=== PATIENT | female | born 1965 | race African-American/Black ===

== ENCOUNTER 2020-03-20 15:02 | Emergency (ER) | payer OTHER ==
[~2020-03-20] VITALS: Ht 165.1 cm; Wt 104.3 kg
[2020-03-20 15:02] VITALS: BP 210/124
--- NOTE | 2020-03-20 15:02 | NUR ---
ED Nurse Note: Pt arrived with RA 34 from home due dizziness and weakness. pt reports she has high BP 220/124 at arrival pt report being amlodipine and benazapril. pt is aox4, no other sypmtoms at this time.
--- NOTE | 2020-03-20 15:12 | Emergency Room Report ---
History of Present Illness General Chief Complaint: Generalized Weakness Source: Patient, EMS Present Illness HPI Patient is a 54-year-old female past medical history of hypertension, fibromyalgia, neuropathy, obesity, and arthritis who presents to the ER by EMS for generalized weakness. Patient complains of generalized weakness and dizziness since yesterday. She states that she feels like the room is spinning. She states that she has no headache or blurry vision. She denies any chest pain or shortness of breath. She denies any abdominal pain, nausea or vomiting. She denies any focal weakness. She denies any falls. Allergies: Coded Allergies: PENICILLINS (Verified Allergy, Unknown, 03/20/20) COVID-19 Screening Contact w/high risk pt: No Experienced COVID-19 symptoms?: No COVID-19 Testing performed CUTTER APPRENTICE HAND: No Patient History Reviewed Nursing Documentation: PMH: Agreed; PSxH: Agreed Nursing Documentation-PMH Hx Cardiac Problems: Yes Hx Hypertension: Yes Hx Asthma: Yes Hx Diabetes: Yes Review of Systems All Other Systems: negative except mentioned in HPI Physical Exam Vital Signs Date Time Temp Pulse Resp B/P (MAP) Pulse Ox O2 Delivery O2 Flow Rate FiO2 03/20/20 14:52 99.0 76 16 210/124 (152) 99 Room Air Sp02 EP Interpretation: reviewed, normal General Appearance: no apparent distress, alert, GCS 15, non-toxic Head: normocephalic, atraumatic Eyes: bilateral eye normal inspection, bilateral eye PERRL ENT: hearing grossly normal, normal pharynx, no angioedema, normal voice Neck: full range of motion, supple/symm/no masses Respiratory: chest non-tender, lungs clear, normal breath sounds, speaking full sentences Cardiovascular #1: regular rate, rhythm Gastrointestinal: normal bowel sounds, non tender, soft, non-distended, no guarding, no rebound, overweight Rectal: deferred Musculoskeletal: back normal, moves extm spontaneously Neurologic: motor strength/tone normal, receiving supervisor III-XII nml as tested, oriented x3 , sensory intact Psychiatric: no suicidal/homicidal ideation Reflexes: 1+ knee (R), 1+ knee (L) Skin: no rash Lymphatic: no adenopathy Medical Decision Making Diagnostic Impression: Primary Impression: Hypertension Additional Impressions: UTI (urinary tract infection) Vertigo ER Course Patient presented vertiginous and with elevated blood pressure. Patient given 10 mg of IV hydralazine and blood pressure is now normal. Patient also given 50 mg of oral meclizine. On reevaluation she is ambulating without difficulty. She states that her vertigo has improved. Patient's MRI of the lumbar spine demonstrates L4-L5 anterior listhesis. Patient given a copy of her MRI results. Patient also found to have UTI. Patient given Macrobid 100 mg p.o. Patient states that she feels much improved. I offered the patient admission and told her that she would wait going to [facility]. 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 I have advised her to come back at any time if she changes her mind or if her symptoms return. Patient has no focal deficits and normal reflexes. After discussing risks and benefits of further diagnostics , treatment plans, as well as indications for and risks of admission, the patient is agreeable to being discharged home. I have explained that their evaluation and treatment in the emergency department today is an important step towards them achieving better health but that their evaluation today is not intended to replace further evaluation and treatment by a physician in their local clinic. I have explained that while the current findings suggest no immediate life threatening emergency they will require further evaluation and treatment by a physician of their choice in their area. They understand that it will be necessary for them to review the final reports of their ED visit with their clinic physician. We have reviewed indications for return to the Emergency Department. I have explained that additional time may need to pass and/or additional testing as an outpatient may be necessary before a definitive diagnosis can be made. They tell me they are willing to follow up as instructed within the timeframe I recommend. They appear to understand what we discussed. Additionally they understand that if they are unable to be seen by an outpatient physician they are welcome, and in fact should, return to the Emergency Department for a repeat evaluation. The patient is stable at time of discharge. Laboratory Tests Test 03/20/20 15:00 03/20/20 16:16 White Blood Count 6.4 K/UL (4.8-10.8) Red Blood Count 4.26 M/UL (4.20-5.40) Hemoglobin 12.2 G/DL (12.0-16.0) Hematocrit 38.9 % (37.0-47.0) Mean Corpuscular Volume 91 FL (80-99) Mean Corpuscular Hemoglobin 28.7 PG (27.0-31.0) Mean Corpuscular Hemoglobin Concent 31.5 G/DL (32.0-36.0) L Red Cell Distribution Width 13.6 % (11.6-14.8) Platelet Count 339 K/UL (150-450) Mean Platelet Volume 6.6 FL (6.5-10.1) Neutrophils (%) (Auto) 52.8 % (45.0-75.0) Lymphocytes (%) (Auto) 38.0 % (20.0-45.0) Monocytes (%) (Auto) 5.4 % (1.0-10.0) Eosinophils (%) (Auto) 2.1 % (0.0-3.0) Basophils (%) (Auto) 1.7 % (0.0-2.0) Prothrombin Time 11.5 SEC (9.30-11.50) Prothrombin Time INR 1.0 (0.9-1.1) Activated Partial Thromboplast Time 32 SEC (23-33) Sodium Level 143 MMOL/L (136-145) Potassium Level 3.8 MMOL/L (3.5-5.1) Chloride Level 108 MMOL/L (98-107) H Carbon Dioxide Level 27 MMOL/L (21-32) Anion Gap 9 mmol/L (5-15) Blood Urea Nitrogen 16 mg/dL (7-18) Creatinine 0.8 MG/DL (0.55-1.30) Estimated Glomerular Filtration Rate > 60 mL/min (>60) Glucose Level 93 MG/DL (74-106) Calcium Level 9.1 MG/DL (8.5-10.1) Magnesium Level 2.1 MG/DL (1.8-2.4) Total Bilirubin 0.4 MG/DL (0.2-1.0) Aspartate Amino Transferase (AST) 20 U/L (15-37) Alanine Aminotransferase (ALT) 22 U/L (12-78) Alkaline Phosphatase 68 U/L (46-116) Total Creatine Kinase 100 U/L (26-308) Troponin I 0.000 ng/mL (0.000-0.056) Total Protein 7.8 G/DL (6.4-8.2) Albumin 3.9 G/DL (3.4-5.0) Globulin 3.9 g/dL Albumin/Globulin Ratio 1.0 (1.0-2.7) Urine Color Yellow Urine Appearance Slightly cloudy Urine pH 6 (4.5-8.0) Urine Specific [place] 1.025 (1.005-1.035) Urine Protein Negative (NEGATIVE) Urine Glucose (UA) Negative (NEGATIVE) Urine Ketones Negative (NEGATIVE) Urine Blood Negative (NEGATIVE) Urine Nitrite Negative (NEGATIVE) Urine Bilirubin Negative (NEGATIVE) Urine Urobilinogen Normal MG/DL (0.0-1.0) Urine Leukocyte Esterase 3+ (NEGATIVE) H Urine RBC 2-4 /HPF (0 - 2) H Urine WBC 10-15 /HPF (0 - 2) H Urine Squamous Epithelial Cells Few /LPF (NONE/OCC) Urine Bacteria Few /HPF (NONE) Urine Opiates Screen Negative (NEGATIVE) Urine Barbiturates Screen Negative (NEGATIVE) Phencyclidine (PCP) Screen Negative (NEGATIVE) Urine Amphetamines Screen Negative (NEGATIVE) Urine Benzodiazepines Screen Negative (NEGATIVE) Urine Cocaine Screen Negative (NEGATIVE) Urine Marijuana (THC) Screen Negative (NEGATIVE) Microbiology Date/Time Source Procedure Growth Status 03/20/20 16:20 Nasopharynx SARS-CoV-2 RdRp Gene Assay - Final Complete EKG Diagnostic Results EKG Time: 15:16 EP Interpretation: Sandrita Willis MD Rate: normal Rhythm: NSR ST Segments: no acute changes Other Impression QT prolongation ASA given to the pt in ED: No Rhythm Strip Diag. Results Rhythm Strip Time: 15:14 EP Interpretation: yes - Sandrita Willis MD Rate: 67 bpm Rhythm: NSR, no PVC's, no ectopy Chest X-Ray Diagnostic Results Chest X-Ray Diagnostic Results : Chest X-Ray Ordered: Yes # of Views/Limited/Complete: 1 View Indication: Other - Weakness EP Interpretation: Yes - Sandrita Willis MD Interpretation: no consolidation, no effusion, no pneumothorax, other - Cardiomegaly Impression: No acute disease Electronically Signed by: Sandrita Willis MD Last Vital Signs Date Time Temp Pulse Resp B/P (MAP) Pulse Ox O2 Delivery O2 Flow Rate FiO2 03/20/20 15:11 210/124 03/20/20 14:52 99.0 76 16 99 Room Air Disposition: HOME, SELF-CARE Condition: Improved Scripts Nitrofurantoin Monohyd/M-Cryst* (MACROBID 100 MG*) 100 Mg Capsule 100 MG ORAL EVERY 12 HOURS for 7 Days, CAP Prov: Sandrita Willis M.D. 03/20/20 Meclizine Hcl* (MECLIZINE*) 25 Mg Tablet 25 MG ORAL THREE TIMES A DAY, #20 TAB Prov: Sandrita Willis M.D. 03/20/20 Additional Instructions: The patient was provided with discharge instructions, notified to follow-up with a primary care doctor and or specialist in the next 24-48 hours, and to return to the ED if they have worsening of their symptoms. Please note that this report is being documented using [employer] technology. This can lead to erroneous entry secondary to incorrect interpretation by the dictating instrument. Sandrita Willis M.D. Mar 20, 2020 15:12
[2020-03-20] MEDS ORDERED: Meclizine 25mg tab ORAL PRN (15:15)
--- NOTE | 2020-03-20 15:27 | NUR ---
ED Nurse Note: Pt taken to CT on nisa
--- NOTE | 2020-03-20 15:34 | NUR ---
ED Nurse Note: pt returned from CT
[2020-03-20 15:51] LABS: BASOPHILS % (AUTO) 1.7 % (0.0-2.0); EOSINOPHILS % (AUTO) 2.1 % (0.0-3.0); HEMATOCRIT 38.9 % (37.0-47.0); HEMOGLOBIN 12.2 G/DL (12.0-16.0); MEAN CORPUSCULAR VOLUME 91 FL (80-99); MONOCYTES % (AUTO) 5.4 % (1.0-10.0); NEUTROPHILS % (AUTO) 52.8 % (45.0-75.0); PLATELET COUNT 339 K/UL (150-450); RED BLOOD COUNT 4.26 M/UL (4.20-5.40); RED CELL DISTRIBUTION WIDTH 13.6 % (11.6-14.8); WHITE BLOOD COUNT 6.4 K/UL (4.8-10.8)
--- NOTE | 2020-03-20 16:02 | NUR ---
ED Nurse Note: lights dimmed for pt comfort.
[2020-03-20 16:11] LABS: ANION GAP 9 mmol/L (5-15); BLOOD UREA NITROGEN 16 mg/dL (7-18); CALCIUM 9.1 MG/DL (8.5-10.1); CARBON DIOXIDE 27 MMOL/L (21-32); CHLORIDE 108 MMOL/L (98-107); CREATININE 0.8 MG/DL (0.55-1.30); POTASSIUM 3.8 MMOL/L (3.5-5.1); SODIUM 143 MMOL/L (136-145)
[2020-03-20 16:16] LABS: ALANINE AMINOTRANSFERASE 22 U/L (12-78); ALBUMIN 3.9 G/DL (3.4-5.0); ALKALINE PHOSPHATASE 68 U/L (46-116); ASPARTATE AMINO TRANSFERASE 20 U/L (15-37); BILIRUBIN,TOTAL 0.4 MG/DL (0.2-1.0); CREATINE KINASE 100 U/L (26-308)
--- NOTE | 2020-03-20 16:20 | Diagnostic Imaging Report ---
Indications: Hypertension, vertigo, neuropathy Technique: Spiral acquisitions obtained through the brain. Angled axial and coronal 5 x 5 mm slices were reconstructed. Total dose length product 993 mGycm. CTDI vol(s) 50 mGy. Dose reduction achieved using automated exposure control Comparison: None. Findings: No acute intracranial hemorrhage or edema. No mass effect nor midline shift. Normal loyd-white differentiation. Normal size ventricles and extra-axial CSF spaces. Mastoids are clear. The sinuses are clear. The orbits are unremarkable. The calvarium is intact. Impression: Negative The CT scanner at [facility] is accredited by the [employer] and the scans are performed using protocols designed to limit radiation exposure to as low as reasonably achievable to attain images of sufficient resolution adequate for diagnostic evaluation.
--- NOTE | 2020-03-20 16:25 | NUR ---
ED Nurse Note: Pt ambulated to restroom with assitance. pt provided urine.
--- NOTE | 2020-03-20 16:45 | NUR ---
ED Nurse Note: Pt left for MRI
--- NOTE | 2020-03-20 17:24 | NUR ---
ED Nurse Note: PT RETURNED FROM MRI ON ARA
[2020-03-20 17:34] LABS: APPEARANCE,URINE SLIGHTLY CLOUDY; BILIRUBIN, URINE NEGATIVE (NEGATIVE); GLUCOSE, URINE (UA) NEGATIVE (NEGATIVE); KETONES,URINE NEGATIVE (NEGATIVE); LEUKOCYTE ESTERASE ,URINE 3+ (NEGATIVE); NITRITE,URINE NEGATIVE (NEGATIVE); PH,URINE 6 (4.5-8.0); PROTEIN,URINE NEGATIVE (NEGATIVE); UROBILINOGEN,URINE NORMAL MG/DL (0.0-1.0)
[2020-03-20 17:38] LABS: COLOR,URINE YELLOW
--- NOTE | 2020-03-20 17:42 | Diagnostic Imaging Report ---
Indication: Chest pain Technique: One view of the chest Comparison: none Findings: Heart is enlarged. Lungs and pleural spaces are clear Impression: Cardiomegaly. No acute process
--- NOTE | 2020-03-20 17:43 | Diagnostic Imaging Report ---
EXAM: MR Lumbar Spine Without Intravenous Contrast CLINICAL HISTORY: PAIN TECHNIQUE: Magnetic resonance images of the lumbar spine without intravenous contrast in multiple planes. COMPARISON: No previous studies. FINDINGS: Vertebrae: There is grade 1 anterolisthesis of L4 upon L5 vertebral body. Mild degenerative disc disease of the remaining levels the lumbar spine. Lower thoracic vertebral bodies and the sacrum are unremarkable. Evaluation of sagittal STIR weighted sequences reveals minimal signal abnormality involving the right pedicle of the L5 vertebral body suggestive of mild stress type injury without discrete fracture. Mild degenerative disc disease at the remaining levels of the lumbar spine. Spinal cord: Conus medullaris is unremarkable Conus medullaris is unremarkable. Soft tissues: Paraspinal soft tissues are unremarkable. DISCS/SPINAL CANAL/NEURAL FORAMINA: L1-L2: No significant focal abnormality. No stenosis. L2-L3: No significant focal abnormality. No stenosis. L3-L4: Moderate degenerative disc disease at the L3-4 and L4-5 levels. Mild to moderate degenerative disc disease L3-4. Mild posterior facet hypertrophy. No stenosis. L4-L5: Moderate degenerative disc disease L4-5. Transaxial images revealed the dominant finding to be at the L4-5 level where there is a broad-based protrusion with impression upon the anterior thecal sac and mild acquired spinal stenosis and moderate posterior facet hypertrophy. L5-S1: No significant focal abnormalities. No stenosis. IMPRESSION: 1. Anterolisthesis of L4 upon L5 vertebral body appeared 2. Minimal bruising and edema involving the right pedicle of L5 vertebral body compatible with mild stress injury. 3. No spondylolysis. 4. Anterolisthesis of L4 upon L5 vertebral body. 5. Degenerative disc disease most notable at L4-5 level.
[2020-03-20] MEDS ORDERED: cefTRIAXone 1 GM in NS 55 ML IVPB ONE (18:15)
--- NOTE | 2020-03-20 18:15 | NUR ---
ED Nurse Note: BARBARA spoke with pt about plan of care
[2020-03-20] MEDS ORDERED: MECLIZINE HCL25 MG ORAL (18:18)
[2020-03-20] MEDS ORDERED: NITROFURANTOIN100 M2 ORAL (18:18)
--- NOTE | 2020-03-20 18:20 | NUR ---
ED Nurse Note: rocephin returned to pyxis per protocol. ERMD changed order
--- NOTE | 2020-03-20 18:27 | NUR ---
ER DISCHARGE NOTE: Patient is cleared to be discharged per ERMD, pt is aox4, on room air, with stable vital signs. pt was given dc and prescription instructions, pt was able to verbalize understanding, pt id band and iv site removed without complications. pt is able to ambulate with steady gait. pt took all belongings.
[2020-03-20 18:28] VITALS: BP 118/57
== END 2020-03-20 18:28 | disposition home or self-care (01) ==
LOC: EDBD 15:02 → EMR 15:15 → CANBEDREQ 18:44
DX: I10 Essential (primary) hypertension (principal); N39.0 Urinary tract infection, site not specified; R42 Dizziness and giddiness; M79.7 Fibromyalgia; Z88.0 Allergy status to penicillin; E11.40 Type 2 diabetes mellitus with diabetic neuropathy, unspecified; E66.3 Overweight; Z68.38 Body mass index [BMI] 38.0-38.9, adult; I51.7 Cardiomegaly
CPT/HCPCS: 36415; 70450; 71045; 72148; 80053; 80307; 81003; 82550; 83735; 84484; 85025; 85610; 85730; 87086; 93005; 96374; J0360; U0002; Z7502; 99284